=== PATIENT | female | born 1980 | race American Indian/Alaskan Native ===

== ENCOUNTER 2016-06-20 02:32 | Emergency (ER) | payer BC ==
[2016-06-20] MEDS ORDERED: MOTRIN PO ONE (04:13)
--- NOTE | 2016-06-20 04:13 | Emergency Department Report ---
- General Chief complaint: Skin/Abscess/Foreign Body Stated complaint: GROWTH LF LEG Time Seen by Provider: 06/20/16 03:53 Source: patient Mode of arrival: Ambulatory Limitations: No Limitations - History of Present Illness Initial comments: 35F PMH skin lesion left medial calf region x16 years. Patient states that she has been self treating a black mole on her left medial calf region with apple cider vinegar over the last 2 weeks. Patient states that over the last week lesion has become red and swollen and has began to drain pus from the middle. Patient states that she has noticed that the lesion on her leg has gotten progressively larger and refer in texture over time also getting slightly aman and discoloration. Patient states she has not seen a senior svp or have this lesion biopsied. Denies any fever or chills no deep calf tenderness but does have superficial tenderness at lesion site. Lesion is black in the center with small amount of purulent drainage and erythematous surrounding base of black plaque. Rough leathery scaly texture on surface of lesion black in color. MD complaint: abscess/boil, lesion Onset/Timin -: week(s) Tetanus Up to Date: yes Location: LLE Severity: moderate Severity scale (0 -10): 5 Quality: burning Consistency: constant Improves with: topical medication - Related Data Previous Rx's Medication Instructions Recorded Last Taken Type Ibuprofen [Motrin] 600 mg PO Q8H PRN #25 tablet 06/20/16 Unknown Rx Neomy/Baci/Polymyx Oint [Triple 15 gm TP BID #1 oint 06/20/16 Unknown Rx Antibiotic] Sulfamethoxazole/Trimethoprim 1 each PO BID #14 tablet 06/20/16 Unknown Rx [Bactrim DS TAB] Allergies Allergy/AdvReac Type Severity Reaction Status Date / Time No Known Allergies Allergy Verified 06/20/16 02:41 Abscess Boil HPI - HPI Chief Complaint: Skin/Abscess/Foreign Body Stated Complaint: GROWTH LF LEG Time Seen by Provider: 06/20/16 03:53 Duration: 1 Week Location: Lower Extremity History: Yes Purulent Drainage (small amount of pus driange reported), Yes Previous History (hx of blakc skin lesion at site), No Fever, No Pain, No Numbness, No Foreign Body, No Insect Bite Home Medications: Previous Rx's Medication Instructions Recorded Last Taken Type Ibuprofen [Motrin] 600 mg PO Q8H PRN #25 tablet 06/20/16 Unknown Rx Neomy/Baci/Polymyx Oint [Triple 15 gm TP BID #1 oint 06/20/16 Unknown Rx Antibiotic] Sulfamethoxazole/Trimethoprim 1 each PO BID #14 tablet 06/20/16 Unknown Rx [Bactrim DS TAB] Allergies/Adverse Reactions: Allergies Allergy/AdvReac Type Severity Reaction Status Date / Time No Known Allergies Allergy Verified 06/20/16 02:41 ED Review of Systems ROS: Stated complaint: GROWTH LF LEG Other details as noted in HPI Constitutional: denies: chills, fever Eyes: denies: eye pain, eye discharge, vision change ENT: denies: ear pain, throat pain Respiratory: denies: cough, shortness of breath, wheezing Cardiovascular: denies: chest pain, palpitations Endocrine: no symptoms reported Gastrointestinal: denies: abdominal pain, nausea, diarrhea Genitourinary: denies: urgency, dysuria, discharge Musculoskeletal: denies: back pain, joint swelling, arthralgia Skin: lesions, change in color (aman and rougher in texture, now red and draining small amount of pus). denies: rash Neurological: denies: headache, weakness, paresthesias Psychiatric: denies: anxiety, depression Hematological/Lymphatic: denies: easy bleeding, easy bruising ED Past Medical Hx - Past Medical History Previous Medical History?: Yes Additional medical history: mvp - Surgical History Past Surgical History?: No - Medications Home Medications: Home Medications Medication Instructions Recorded Confirmed Last Taken Type Ibuprofen [Motrin] 600 mg PO Q8H PRN #25 tablet 06/20/16 Unknown Rx Neomy/Baci/Polymyx Oint [Triple 15 gm TP BID #1 oint 06/20/16 Unknown Rx Antibiotic] Sulfamethoxazole/Trimethoprim 1 each PO BID #14 tablet 06/20/16 Unknown Rx [Bactrim DS TAB] ED Physical Exam - General Limitations: No Limitations General appearance: alert, in no apparent distress - Head Head exam: Present: atraumatic, normocephalic - Eye Eye exam: Present: normal appearance, PERRL, EOMI - ENT ENT exam: Present: mucous membranes moist - Neck Neck exam: Present: normal inspection - Respiratory Respiratory exam: Present: normal lung sounds bilaterally. Absent: respiratory distress - Cardiovascular Cardiovascular Exam: Present: regular rate, normal rhythm. Absent: systolic murmur, diastolic murmur, rubs, gallop - GI/Abdominal GI/Abdominal exam: Present: soft, normal bowel sounds - Extremities Exam Extremities exam: Present: normal inspection - Back Exam Back exam: Present: normal inspection - Neurological Exam Neurological exam: Present: alert, oriented X3 - Psychiatric Psychiatric exam: Present: normal affect, normal mood - Skin Skin exam: Present: warm, dry, intact, normal color. Absent: rash - Expanded Skin Exam Expanded Distribution of rash: LLE Description of rash: Present: tenderness, erythematous, fluctuant 1 - area approximately 3 cm diamteter black rough lesion with central fluctuance and erythematous base ED Course Vital Signs 06/20/16 02:36 Temperature 98.7 F Pulse Rate 68 Respiratory 18 Rate Blood Pressure 112/72 O2 Sat by Pulse 100 Oximetry - I & D Left Medial Calf Blade Size: 11 I & D Procedure: betadine prep Progress: 3 mL of 1% lidocaine infiltrated into the area, small vertical half centimeter incision made, small amount of purulent drainage, wound culture collected and sent, minimal bleeding procedure tolerated well with minimal pain, area covered with 4 x 4 gauze and triple antibiotic ointment ED Medical Decision Making - Medical Decision Making A/P: Skin lesion, possible melanoma, abscess with small amount of surrounding cellulitis 1-I referred patient to dermatology, referred to Dr. Chavez [phone]. I emphasized to the patient that given discoloration of this lesion and changes that she has noticed over the last several months including rougher texture and increase in size there is a concern that she could have possible cancerous skin lesion and should obtain a biopsy as soon as possible to determine if it is benign versus cancerous 2-Motrin when necessary for pain, Bactrim DS twice a day 7 days for empiric coverage of small amount of cellulitis 3-wound culture sent 4-advised patient to return to the ED if area of redness expands beyond current borders or if she begins to develop fever or chills or if she has reaccumulation of abscess Critical care attestation.: If time is entered above; I have spent that time in minutes in the direct care of this critically ill patient, excluding procedure time. ED Disposition Clinical Impression: Abscess, Skin lesion of left leg Disposition: DISCHARGED TO HOME OR SELFCARE Is pt being admited?: No Does the pt Need Aspirin: No Condition: Stable Instructions: Abscess (ED) Prescriptions: Ibuprofen [Motrin] 600 mg PO Q8H PRN #25 tablet PRN Reason: Pain Neomy/Baci/Polymyx Oint [Triple Antibiotic] 15 gm TP BID #1 oint Sulfamethoxazole/Trimethoprim [Bactrim DS TAB] 1 each PO BID #14 tablet Referrals: CODIE GALVAN MD [Staff Physician] - 3-5 Days PHU MORALES MD [Staff Physician] - 3-5 Days MAN SULTANA MD [Staff Physician] - 3-5 Days [facility] [Provider Group] - 3-5 Days Forms: Accompanied Note, Work/School Release Form(ED) Time of Disposition: 04:42
[2016-06-20 04:39] VITALS: BP 112/70
[2016-06-20] MEDS ORDERED: TRIPLE ANTIBIOTIC TP ONE (04:39)
== END 2016-06-20 04:53 | disposition home or self-care (01) ==
LOC: ED 02:32
DX: L02.416 Cutaneous abscess of left lower limb (principal); Z79.1 Long term (current) use of non-steroidal anti-inflammatories (NSAID); Z79.899 Other long term (current) drug therapy
CPT/HCPCS: 87116; A6250